=== PATIENT | female | born 1945 | race Caucasian/White ===

== ENCOUNTER → 2016-06-27 | Outpatient (CLI) | payer OTHER ==
[2016-06-27 10:45] LABS: HEMATOCRIT 40.6 % (37.0-47.0); HEMOGLOBIN 13.5 g/dL (12.0-16.0); MEAN CORPUSCULAR HEMOGLOBIN 29.3 PG (27-31); MEAN CORPUSCULAR HGB CONC 33.3 g/dL (33-37); MEAN PLATELET VOLUME 8.9 FL (7.4-12.2); RDW COEFFICIENT OF VARIATION 14.5 % (11.5-14.5); RED BLOOD COUNT 4.6 10^6/uL (4.20-5.40); WHITE BLOOD COUNT 5.09 10^3/uL (4.8-10.8)
[2016-06-27 11:15] LABS: BLOOD UREA NITROGEN 18 mg/dL (7-22); BUN/CREATININE RATIO 13.84 (6-20); CALCIUM 9.4 mg/dL (8.7-10.7); CHLORIDE 105 meq/L (98-112); CREATININE 1.3 mg/dL (0.50-1.20); GLUCOSE 94 mg/dL (78-110); HDL CHOLESTEROL 78 mg/dL (40-150); POTASSIUM 3.7 meq/L (3.8-5.2); SODIUM 138 meq/L (135-145); TRIGLYCERIDES 113 mg/dL (44-200)
[2016-06-27 11:32] LABS: BLOOD UREA NITROGEN 18 mg/dL (7-22); BUN/CREATININE RATIO 13.84 (6-20); CALCIUM 9.4 mg/dL (8.7-10.7); CHLORIDE 105 meq/L (98-112); CREATININE 1.3 mg/dL (0.50-1.20); GLUCOSE 94 mg/dL (78-110); PHOSPHORUS 3.8 mg/dl (2.4-4.3); POTASSIUM 3.7 meq/L (3.8-5.2); SODIUM 138 meq/L (135-145)
[2016-06-28 10:37] LABS: PARATHYROID HORMONE 31 pg/mL (15-65)
== END ==
LOC: LAB 10:29
PROVIDERS: ATTEND Internal Medicine Nephrology
DX: E87.6 Hypokalemia (principal); E78.5 Hyperlipidemia, unspecified; I12.9 Hypertensive chronic kidney disease with stage 1 through stage 4 chronic kidney disease, or unspecified chronic kidney disease; N18.3 Chronic kidney disease, stage 3 (moderate); D63.1 Anemia in chronic kidney disease; N25.81 Secondary hyperparathyroidism of renal origin
CPT/HCPCS: 36415; 80048; 80061; 80069; 83970; 85027

== ENCOUNTER → 2016-07-12 | Outpatient (CLI) | payer OTHER | LOC: MMPC 11:11 | PROVIDERS: ATTEND Nurse Practitioner Family | DX: M81.0 Age-related osteoporosis without current pathological fracture (principal) | CPT/HCPCS: G0463; J0897 ==

== ENCOUNTER → 2016-08-31 | Outpatient (CLI) | payer OTHER ==
[2016-08-31 10:41] LABS: BILIRUBIN,URINE NEGATIVE (NEG); CLARITY,URINE CLEAR (CLEAR); COLOR,URINE YELLOW; GLUCOSE, URINE (UA) NEGATIVE (NEG); NITRATE,URINE NEGATIVE (NEG); OCCULT BLOOD,URINE MODERATE (NEG); PROTEIN,URINE 100 mg/dl (NEG); UROBILINOGEN,URINE 0.2 mg/dL (0.2)
[2016-08-31 10:43] LABS: URINE SAMPLE TYPE CLEAN CATCH URINE
[2016-08-31 10:45] LABS: BACTERIA,URINE RARE
== END ==
LOC: LAB 10:16
PROVIDERS: ATTEND Nurse Practitioner Family
DX: N34.3 Urethral syndrome, unspecified (principal); R10.84 Generalized abdominal pain; R82.99 Other abnormal findings in urine
CPT/HCPCS: 81001; 87088

== ENCOUNTER → 2016-09-25 | Outpatient (CLI) | payer OTHER ==
[2016-09-25 12:13] LABS: HEMATOCRIT 40.3 % (37.0-47.0); HEMOGLOBIN 13.3 g/dL (12.0-16.0); MEAN CORPUSCULAR HEMOGLOBIN 28.2 PG (27-31); MEAN CORPUSCULAR VOLUME 85.6 FL (81-99); MEAN PLATELET VOLUME 9.1 FL (7.4-12.2); RED BLOOD COUNT 4.71 10^6/uL (4.20-5.40)
[2016-09-25 12:24] LABS: BLOOD UREA NITROGEN 16 mg/dL (7-22); CALCIUM 9.3 mg/dL (8.7-10.7); PHOSPHORUS 3.8 mg/dl (2.4-4.3)
== END ==
LOC: LAB 11:57
PROVIDERS: ATTEND Physician Assistant Medical
DX: N18.3 Chronic kidney disease, stage 3 (moderate) (principal); D63.1 Anemia in chronic kidney disease; N25.81 Secondary hyperparathyroidism of renal origin
CPT/HCPCS: 36415; 80069; 83970; 85027

== ENCOUNTER → 2016-11-06 | Outpatient (CLI) | payer OTHER ==
[2016-11-06 10:35] LABS: BLOOD UREA NITROGEN 24 mg/dL (7-22); BUN/CREATININE RATIO 18.46 (6-20); CALCIUM 9.8 mg/dL (8.7-10.7); CHOL/HDL RATIO 2.75 RATIO (0-4.0); GAMMA GLUTAMYL TRANSPEPTIDASE 24 IU/L (8-78); HDL CHOLESTEROL 70 mg/dL (40-150); SERUM CHOLESTEROL 193 mg/dL (120-200)
== END ==
LOC: LAB 09:47
PROVIDERS: ATTEND Nurse Practitioner Family
DX: I10 Essential (primary) hypertension (principal); E78.5 Hyperlipidemia, unspecified; E87.6 Hypokalemia; L02.211 Cutaneous abscess of abdominal wall
CPT/HCPCS: 36415; 80048; 82247; 82465; 82550; 82977; 83718; 84075; 84450; 84460; 84478; 87070; 87077; 87186; 87205

== ENCOUNTER → 2016-11-10 | Outpatient (CLI) | payer OTHER | LOC: MMPC 09:00 | PROVIDERS: ATTEND Nurse Practitioner Family | DX: H61.22 Impacted cerumen, left ear (principal) | CPT/HCPCS: 69209 ×2; G0463 ==

== ENCOUNTER → 2016-12-25 | Outpatient (CLI) | payer OTHER ==
[2016-12-25 10:03] LABS: BLOOD UREA NITROGEN 21 mg/dL (7-22); CALCIUM 9.3 mg/dL (8.7-10.7)
== END ==
LOC: LAB 09:33
PROVIDERS: ATTEND Nurse Practitioner Family
DX: I10 Essential (primary) hypertension (principal); E87.6 Hypokalemia
CPT/HCPCS: 36415; 80048

== ENCOUNTER → 2017-01-12 | Outpatient (CLI) | payer OTHER | LOC: MMPC 09:00 | PROVIDERS: ATTEND Nurse Practitioner Family | DX: M81.0 Age-related osteoporosis without current pathological fracture (principal); R21 Rash and other nonspecific skin eruption | CPT/HCPCS: G0463; J0897; J3301 ==